=== PATIENT | male | born 1935 | race Caucasian/White ===

== ENCOUNTER 2017-11-04 12:38 | Emergency (ER) | payer MEDICARE, BC ==
[~2017-11-04] VITALS: Ht 174 cm; Wt 97.4 kg
[~2017-11-04 12:38] MED LIST: ASPI81TA82 PO; ATOR40TA PO; BACT2CRE TOP; BUPR-86 PO; CEFU1TAB43 PO; COQ150CA PO; FOLI1TAB PO; METO50TA PO; SYMB160A INH; VITATAB11 PO; ZETI10TA5 PO
[2017-11-04 12:46] VITALS: BP 136/69; PULSE 59; RESP 16; TEMP 97.9; O2SAT 95
[2017-11-04 13:05] VITALS: RESP 24; O2SAT 95
--- NOTE | 2017-11-04 13:18 | PD ---
HPI Chief Complaint: Edema Time Seen by Provider: 13:18 Travel History International Travel<30 days: No Contact w/Intl Traveler<30days: No Traveled to known affect area: No History of Present Illness HPI 81-year-old male came to the emergency room with history of right leg and ankle swelling for past 1 week. His is here was giving some additional history. Patient had gone to see his primary care. Days ago and an x-ray of the ankle was ordered. The x-ray was negative for any injury. But this morning the swelling was worse when the right decided to bring him to the emergency room. Patient has history of COPD and has been short of breath. His vital signs were relatively stable. Patient is denying of any chest pain. No history of vomiting or diarrhea. No history of previous blood clots in the legs or lungs. Patient is on 1 baby aspirin every day. No leg pain or chills. PFSH Past Medical History Narrative Medical List of his past medical, surgical, social and family history is reviewed from the nursing note. Hx Anticoagulant Therapy: Yes Arthritis: No Asthma: No Heart Rhythm Problems: Yes (unsure) Cancer: No Cardiovascular Problems: Yes (HTN ON MEDS) High Cholesterol: Yes Chest Pain: No Congestive Heart Failure: No COPD: Yes Cerebrovascular Accident: Yes Diabetes: No Diminished Hearing: No Endocrine: No Genitourinary: No Hepatitis: No Hiatal Hernia: No Hypertension: Yes Immune Disorder: No Musculoskeletal: No Neurologic: Yes Psychiatric: No Reproductive: No Respiratory: Yes (COPD) Shingles: Yes Thyroid Disease: No Past Surgical History Abdominal Surgery: No AICD: No Cardiac Surgery: No Ear Surgery: No Endocrine Surgery: No Eye Surgery: Yes (BILAT. CATARACTS) Genitourinary Surgery: Yes (PROSTATE ) Joint Replacement: No Oral Surgery: No Thoracic Surgery: No Other Surgery: Yes (CAROTID SX) Social History Alcohol Use: No Tobacco Use: No Substance Use: No Allergies-Medications (Allergen,Severity, Reaction): Coded Allergies: formaldehyde (Unverified Allergy, Mild, RASH, 11/04/17) iodine (Unverified Allergy, Mild, RASH, 11/04/17) penicillin G (Unverified Allergy, Mild, STATES NOT ALLERGIC, 11/04/17) petrolatum,white (Unverified Allergy, Mild, RASH, 11/04/17) potassium iodide (Unverified Allergy, Mild, RASH, 11/04/17) povidone-iodine (Unverified Allergy, Mild, RASH, 11/04/17) sodium iodide (Unverified Allergy, Mild, RASH, 11/04/17) sodium iodide (Unverified Allergy, Mild, RASH, 11/04/17) Uncoded Allergies: PETROLEUM JELLY (Allergy, Intermediate, RASH AND ITCHING , 06/28/13) Comments List of his allergies reviewed from the nursing note. Reported Meds & Prescriptions Reported Meds & Active Scripts Active Clindamycin (Clindamycin HCl) 150 Mg Cap 150 Mg PO Q6H 7 Days Reported Ranitidine (Ranitidine HCl) 150 Mg Tab 150 Mg PO HS Criers Podium (Probiotic Product) 1.5 Billion Cell Cap 1 Cap PO HS Colace (Docusate Sodium) 100 Mg Capsule 100 Mg PO DAILY Proair Hfa 8.5 GM Inh (Albuterol Sulfate) 90 Mcg/Act Aer 2 Puff INH Q4-6H PRN 108 mcg/actuation Symbicort Inh (Budesonide/Formoterol Fumarate) 160-4.5 Mcg/Act Aero 2 Puff INH Q12HR Clobetasol Topical (Clobetasol Propionate) 0.05% Cream 1 Applic TOPICAL BID Vitamin B Complex (B-Complex Vitamins) 1 Tab 1 Tab PO DAILY Vitamin D3 (Cholecalciferol) 2,000 Unit Cap 4,000 Units PO DAILY Coq-10 Tr (Coenzyme Q10 (Ubidecarenone)) 100 Mg Cap 100 Mg PO DAILY Aspirin EC (Aspirin) 81 Mg Tabdr 81 Mg PO DAILY Zetia (Ezetimibe) 10 Mg Tab 10 Mg PO DAILY Folic Acid 0.4 Mg Tab 400 Mcg PO DAILY Atorvastatin (Atorvastatin Calcium) 20 Mg Tab 20 Mg PO DAILY Metoprolol Tartrate 25 Mg Tab 12.5 Mg PO BID Narrative Medication List of his home medications reviewed from the nursing note. Review of Systems Except as stated in HPI: all other systems reviewed are Neg Musculoskeletal: Positive: Edema Physical Exam Narrative GENERAL: Awake, alert, elderly, looks older than his age, moderate distress SKIN: Focused skin assessment warm/dry. Multiple senile ecchymoses HEAD: Atraumatic. Normocephalic. EYES: Pupils equal and round. No scleral icterus. No injection or drainage. ENT: No nasal bleeding or discharge. Mucous membranes pink and moist. NECK: Trachea midline. No JVD. CARDIOVASCULAR: Regular rate and rhythm. No murmur appreciated. RESPIRATORY: Decreased air entry, and expiratory wheeze mostly on the right GASTROINTESTINAL: Abdomen soft, non-tender, nondistended. Hepatic and splenic margins not palpable. MUSCULOSKELETAL: No obvious deformities. No clubbing. No cyanosis. Right leg 2 + edema and left leg 1+ NEUROLOGICAL: Awake and alert. No obvious cranial nerve deficits. Motor grossly within normal limits. Normal speech. PSYCHIATRIC: Appropriate mood and affect; insight and judgment normal. Data Data Last Documented VS Orders Orders Complete Blood Count With Diff (11/04/17 13:27) Basic Metabolic Panel (Bmp) (11/04/17 13:27) B-Type Natriuretic Peptide (11/04/17 13:27) Prothrombin Time / Inr (Pt) (11/04/17 13:27) Troponin I (11/04/17 13:27) Iv Access Insert/Monitor (11/04/17 13:27) Electrocardiogram (11/04/17 13:27) Ecg Monitoring (11/04/17 13:27) Oximetry (11/04/17 13:27) Oxygen Administration (11/04/17 13:27) Chest, Single Ap (11/04/17 13:27) Us Leg Venous Doppler (11/04/17 13:27) Sodium Chloride 0.9% Flush (Ns Flush) (11/04/17 13:30) Albuterol-Ipratropium Neb (Duoneb Neb) (11/04/17 13:30) Cephalexin (Keflex) (11/04/17 15:00) Clindamycin (Cleocin) (11/04/17 15:00) Ed Discharge Order (11/04/17 14:53) Labs Laboratory Tests Test 11/04/17 13:05 White Blood Count 9.2 TH/MM3 Red Blood Count 4.58 MIL/MM3 Hemoglobin 13.6 GM/DL Hematocrit 41.8 % Mean Corpuscular Volume 91.3 FL Mean Corpuscular Hemoglobin 29.8 PG Mean Corpuscular Hemoglobin Concent 32.6 % Red Cell Distribution Width 13.1 % Platelet Count 269 TH/MM3 Mean Platelet Volume 8.1 FL Neutrophils (%) (Auto) 75.4 % Lymphocytes (%) (Auto) 13.7 % Monocytes (%) (Auto) 7.0 % Eosinophils (%) (Auto) 3.6 % Basophils (%) (Auto) 0.3 % Neutrophils # (Auto) 7.0 TH/MM3 Lymphocytes # (Auto) 1.3 TH/MM3 Monocytes # (Auto) 0.6 TH/MM3 Eosinophils # (Auto) 0.3 TH/MM3 Basophils # (Auto) 0.0 TH/MM3 CBC Comment DIFF FINAL Differential Comment Prothrombin Time 10.2 SEC Prothromb Time International Ratio 1.0 RATIO Blood Urea Nitrogen 25 MG/DL Creatinine 1.00 MG/DL Random Glucose 102 MG/DL Calcium Level 8.8 MG/DL Sodium Level 138 MEQ/L Potassium Level 4.6 MEQ/L Chloride Level 104 MEQ/L Carbon Dioxide Level 26.5 MEQ/L Anion Gap 8 MEQ/L Estimat Glomerular Filtration Rate 72 ML/MIN Troponin I LESS THAN 0.02 NG/ML B-Type Natriuretic Peptide 91 PG/ML MDM Medical Decision Making Medical Screen Exam Complete: Yes Emergency Medical Condition: Yes Medical Record Reviewed: Yes Interpretation(s) Twelve-lead EKG was reviewed by me. Normal sinus rhythm, normal axis, right bundle branch block, PVCs. Heart rate of 61 bpm. Differential Diagnosis DVT, congestive heart failure Narrative Course 2:33 PM the test results of back and they're within acceptable limits. Awaiting for the ultrasound of the leg to rule out DVT. Patient was given 2 DuoNeb. 2:50 PM ultrasound is negative for DVT. I'll start him on clindamycin for possible cellulitis and discharge him home. Procedures EKG Prior to Arrival: No Diagnosis Primary Impression: Acute exacerbation of COPD with asthma Additional Impression: Cellulitis Qualified Codes: L03.115 - Cellulitis of right lower limb Referrals: Primary Care Physician 2 days Additional Instructions: Return to the ER if the condition worsens or any other new concerns. Otherwise take the medication as per the prescription direction. Follow-up with your primary care next couple days. Use your inhaler 2 puffs every 8 hours till your breathing symptoms subside. Med/Other Pt SpecificInfo: Prescription(s) given Scripts Clindamycin (Clindamycin) 150 Mg Cap 150 MG PO Q6H for Infection for 7 Days, #28 CAP 0 Refills Prov: Farhad Medina MD 11/04/17 Disposition: 01 DISCHARGE HOME Condition: Stable Farhad Medina MD Nov 04, 2017 13:18
[2017-11-04] MEDS ORDERED: SODIUM CHLORIDE 0.9% FLUSH 10 ML FLUSH IVF PRN (13:30)
[2017-11-04] MEDS ORDERED: VITA2000 PO (13:33)
[2017-11-04] MEDS ORDERED: ASPI81TA23 PO (13:33)
[2017-11-04] MEDS ORDERED: COQ-100C5 PO (13:33)
[2017-11-04] MEDS ORDERED: COLA100C5 PO (13:33)
[2017-11-04] MEDS ORDERED: RANI150T PO (13:33)
[2017-11-04] MEDS ORDERED: CLOB0.055 TOPICAL (13:33)
[2017-11-04] MEDS ORDERED: EZET10 PO (13:33)
[2017-11-04] MEDS ORDERED: VITATAB11 PO (13:33)
[2017-11-04] MEDS ORDERED: ALBUAER3 INH (13:33)
[2017-11-04] MEDS ORDERED: ATOR20TA15 PO (13:33)
[2017-11-04] MEDS ORDERED: METO25TA3 PO (13:33)
[2017-11-04] MEDS ORDERED: PHILCAP2 PO (13:33)
[2017-11-04] MEDS ORDERED: SYMB160A INH (13:33)
[2017-11-04] MEDS ORDERED: FOLI400T PO (13:33)
[2017-11-04 13:39] VITALS: BP 117/80; PULSE 61; RESP 16; O2SAT 95
[2017-11-04] MEDS: RESP: ALBUTEROL 2.5 MG/IPRATROPIUM 0.5 MG NEB (SCH) INH ×2 (13:39→13:40)
[2017-11-04 13:44] LABS: BASOPHIL % 0.3 % (0.0-2.0); EOSINOPHIL # 0.3 TH/MM3 (0-0.4); EOSINOPHIL % 3.6 % (0.0-4.0); HEMATOCRIT 41.8 % (39.0-51.0); HEMOGLOBIN 13.6 GM/DL (13.0-17.0); LYMPH % 13.7 % (9.0-44.0); LYMPHOCYTE # 1.3 TH/MM3 (1.0-4.8); MEAN CELL VOLUME 91.3 FL (80.0-100.0); MEAN CORPUSCULAR HEMOGLOBIN 29.8 PG (27.0-34.0); MEAN CORPUSCULAR HGB CONC 32.6 % (32.0-36.0); MEAN PLATELET VOLUME 8.1 FL (7.0-11.0); MONOCYTE # 0.6 TH/MM3 (0-0.9); NEUT % 75.4 % (16.0-70.0); PLATELET COUNT 269 TH/MM3 (150-450); RED BLOOD COUNT 4.58 MIL/MM3 (4.50-5.90); RED CELL DISTRIBUTION WIDTH 13.1 % (11.6-17.2); WHITE BLOOD COUNT 9.2 TH/MM3 (4.0-11.0)
[2017-11-04 14:09] LABS: CHLORIDE 104 MEQ/L (98-107); SODIUM (NA) 138 MEQ/L (136-145)
[2017-11-04 14:11] LABS: BICARBONATE 26.5 MEQ/L (21.0-32.0); CALCIUM 8.8 MG/DL (8.5-10.1); GLUCOSE,RANDOM 102 MG/DL (74-106)
[2017-11-04 14:12] LABS: BLOOD UREA NITROGEN 25 MG/DL (7-18); PROTHROMBIN TIME - PATIENT 10.2 SEC (9.8-11.6)
[2017-11-04 14:15] LABS: GLOMERULAR FILTRATION RATE 72 ML/MIN (>89)
[2017-11-04 14:19] LABS: TROPONIN I LESS THAN 0.02 NG/ML (0.02-0.05)
--- NOTE | 2017-11-04 14:37 | RADRPT ---
EXAM DATE/TIME: 11/04/2017 14:16 [facility] COMPARISON: No previous studies available for comparison. INDICATIONS : Right leg swelling. MEDICAL HISTORY : Hypercholesterolemia. Hypertension. Chronic obstructive pulmonary disease. CVA. Anticoagulant ther apy. SURGICAL HISTORY : Carotid surgery. Skin cancer removal. ENCOUNTER: Initial ACUITY: 1 week PAIN SCORE: 0/10 LOCATION: Right leg. TECHNIQUE: Venous ultrasound of the leg was performed from the inguinal ligament to the proximal calf. Real-keri e, color Doppler and spectral tracing, compression and augmentation techniques were used. FINDINGS: There is normal compressibility of the deep venous system from the inguinal region to the proximal ca lf. No echogenic clot is seen in the lumen of the common femoral, femoral, popliteal, and posterior tibial veins. There is a normal response of the venous system to proximal and distal augmentation an d respiration. CONCLUSION: Normal examination. Francisco Au MD on November 04, 2017 at 14:34 Board Certified Radiologist. This report was verified electronically.
--- NOTE | 2017-11-04 14:47 | RADRPT ---
EXAM DATE/TIME: 11/04/2017 14:34 [facility] COMPARISON: CHEST SINGLE AP, July 03, 2016, 12:42. INDICATIONS : Lower extremity swelling for one week. MEDICAL HISTORY : Hypercholesterolemia. Hypertension. Chronic obstructive pulmonary disease. CVA. Anticoagulant therapy . SURGICAL HISTORY : Carotid surgery. Skin cancer removal. ENCOUNTER: Initial ACUITY: 1 week PAIN SCORE: 0/10 LOCATION: Bilateral chest FINDINGS: A single view of the chest demonstrates the lungs to be symmetrically aerated without evidence of mas s, infiltrate or effusion. The cardiomediastinal contours are unremarkable. Osseous structures are intact. CONCLUSION: Normal examination. The aorta is quite tortuous. Francisco Au MD on November 04, 2017 at 14:45 Board Certified Radiologist. This report was verified electronically.
[2017-11-04] MEDS ORDERED: CLIN150C14 PO (14:52)
[2017-11-04] MEDS ORDERED: CLINDAMYCIN 150 MG CAP PO ONE (15:00)
[2017-11-04] MEDS ORDERED: CEPHALEXIN MONOHYDRATE 500 MG CAP PO ONE (15:00)
[2017-11-04 15:05] VITALS: BP 103/63; PULSE 74; RESP 16; O2SAT 94
--- NOTE | 2017-11-04 16:21 | EKG ---
Date Performed: 11/04/2017 Time Performed: 13:57:58 PTAGE: 81 years EKG: Sinus rhythm WITH OCCASIONAL VENTRICULAR PREMATURE COMPLEXES WITH OCCASIONAL SUPRAVENTRICULAR PREMATURE COMPLEXES RIGHT BUNDLE BRANCH BLOCK ABNORMAL ECG Compared to prior electrocardiogram, rate has decreased PREVIOUS TRACING : 07/03/2016 12.12 DOCTOR: Kaushal Aleman Interpretating Date/Time 11/04/2017 16:20:37
== END 2017-11-04 15:55 | disposition home or self-care (01) ==
LOC: PHED 12:38
DX: J44.1 Chronic obstructive pulmonary disease with (acute) exacerbation (principal); L03.115 Cellulitis of right lower limb; R94.31 Abnormal electrocardiogram [ECG] [EKG]; I10 Essential (primary) hypertension; E78.00 Pure hypercholesterolemia, unspecified; Z86.73 Personal history of transient ischemic attack (TIA), and cerebral infarction without residual deficits; Z79.82 Long term (current) use of aspirin
CPT/HCPCS: 71010; 80048; 83880; 84484; 85025; 85610; 93005; 93971; 94640; 94664

== ENCOUNTER 2017-12-15 17:40 | Emergency (ER) | payer MEDICARE, BC ==
[~2017-12-15] VITALS: Ht 172.7 cm; Wt 98.0 kg
[~2017-12-15 17:40] MED LIST changes: +ALBUAER3 INH; +ASPI81TA23 PO; -ASPI81TA82 PO; +ATOR20TA15 PO; -ATOR40TA PO; -BACT2CRE TOP; -BUPR-86 PO; -CEFU1TAB43 PO; +CLIN150C14 PO; +CLOB0.055 TOPICAL; +COLA100C5 PO; +COQ-100C5 PO; -COQ150CA PO; +EZET10 PO; -FOLI1TAB PO; +FOLI400T PO; +METO25TA3 PO; -METO50TA PO; +PHILCAP2 PO; +RANI150T PO; +VITA2000 PO; -ZETI10TA5 PO
[2017-12-15 18:06] VITALS: BP 124/61; PULSE 88; RESP 16; TEMP 98.4; O2SAT 95
[2017-12-15] MEDS ORDERED: CIPR-9 PO (19:18)
--- NOTE | 2017-12-15 19:25 | PD ---
HPI Chief Complaint: Edema Time Seen by Provider: 19:10 Travel History International Travel<30 days: No Contact w/Intl Traveler<30days: No Traveled to known affect area: No History of Present Illness HPI 82yo M with PMH of CVA, COPD here with c/o bilateral lower extremity edema. Said it is more ankle and up to half of the calf and more edema on right side than left. Had some calf pain that had resolved on its own. Pt is being treated for a fungal infection on bilateral feet and said the medication helps with the itching. 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 He said that his legs started swelling after that but unsure if it is related. Denies any fever, chest pain, sob, n/v, abdominal pain, focal weakness or numbness or trauma. Denies any PE/DVT. PFSH Past Medical History Hx Anticoagulant Therapy: Yes Arthritis: No Asthma: No Heart Rhythm Problems: Yes (unsure) Cancer: No Cardiovascular Problems: Yes (HTN ON MEDS) High Cholesterol: Yes Chest Pain: No Congestive Heart Failure: No COPD: Yes Cerebrovascular Accident: Yes Diabetes: No Diminished Hearing: No Endocrine: No Genitourinary: No Hepatitis: No Hiatal Hernia: No Hypertension: Yes Immune Disorder: No Musculoskeletal: No Neurologic: Yes Psychiatric: No Reproductive: No Respiratory: Yes (COPD) Shingles: Yes Sleep Apnea: No Thyroid Disease: No Influenza Vaccination: No Past Surgical History Abdominal Surgery: No AICD: No Cardiac Surgery: No Ear Surgery: No Endocrine Surgery: No Eye Surgery: Yes (BILAT. CATARACTS) Genitourinary Surgery: Yes (PROSTATE ) Joint Replacement: No Oral Surgery: No Thoracic Surgery: No Other Surgery: Yes (CAROTID SX, skin cancer removal) Social History Alcohol Use: No Tobacco Use: No Substance Use: No Allergies-Medications (Allergen,Severity, Reaction): Coded Allergies: formaldehyde (Unverified Allergy, Mild, RASH, 12/15/17) iodine (Unverified Allergy, Mild, RASH, 12/15/17) penicillin G (Unverified Allergy, Mild, STATES NOT ALLERGIC, 12/15/17) petrolatum,white (Unverified Allergy, Mild, RASH, 12/15/17) potassium iodide (Unverified Allergy, Mild, RASH, 12/15/17) povidone-iodine (Unverified Allergy, Mild, RASH, 12/15/17) sodium iodide (Unverified Allergy, Mild, RASH, 12/15/17) sodium iodide (Unverified Allergy, Mild, RASH, 12/15/17) Uncoded Allergies: PETROLEUM JELLY (Allergy, Intermediate, RASH AND ITCHING , 06/28/13) Reported Meds & Prescriptions Reported Meds & Active Scripts Active Reported Cipro (Ciprofloxacin HCl) 500 Mg Tab 500 Mg PO BID Ranitidine (Ranitidine HCl) 150 Mg Tab 150 Mg PO HS [place]ursway (Probiotic Product) 1.5 Billion Cell Cap 1 Cap PO HS Colace (Docusate Sodium) 100 Mg Capsule 100 Mg PO DAILY Proair Hfa 8.5 GM Inh (Albuterol Sulfate) 90 Mcg/Act Aer 2 Puff INH Q4-6H PRN 108 mcg/actuation Symbicort Inh (Budesonide/Formoterol Fumarate) 160-4.5 Mcg/Act Aero 2 Puff INH Q12HR Clobetasol Topical (Clobetasol Propionate) 0.05% Cream 1 Applic TOPICAL BID Vitamin B Complex (B-Complex Vitamins) 1 Tab 1 Tab PO DAILY Vitamin D3 (Cholecalciferol) 2,000 Unit Cap 4,000 Units PO DAILY Coq-10 Tr (Coenzyme Q10 (Ubidecarenone)) 100 Mg Cap 100 Mg PO DAILY Aspirin EC (Aspirin) 81 Mg Tabdr 81 Mg PO DAILY Zetia (Ezetimibe) 10 Mg Tab 10 Mg PO DAILY Folic Acid 0.4 Mg Tab 400 Mcg PO DAILY Atorvastatin (Atorvastatin Calcium) 20 Mg Tab 20 Mg PO DAILY Metoprolol Tartrate 25 Mg Tab 12.5 Mg PO BID Review of Systems Except as stated in HPI: all other systems reviewed are Neg Physical Exam Narrative GENERAL: 82yo M not in distress. SKIN: Focused skin assessment warm/dry. HEAD: Atraumatic. Normocephalic. EYES: Pupils equal and round. No scleral icterus. No injection or drainage. ENT: No nasal bleeding or discharge. Mucous membranes pink and moist. NECK: Trachea midline. No JVD. CARDIOVASCULAR: Regular rate and rhythm. No murmur appreciated. RESPIRATORY: No accessory muscle use. Mild end expiratory wheezing. GASTROINTESTINAL: Abdomen soft, non-tender, nondistended. MUSCULOSKELETAL: Bilateral lower extremity pitting edema, right is more edematous than left. No calf tenderness on exam. DP 2+. +Irregular erythematous rash with central clearing in bilateral feet that does appear fungal. Sensation intact bilaterally. NEUROLOGICAL: Awake and alert. No obvious cranial nerve deficits. Motor grossly within normal limits. Normal speech. PSYCHIATRIC: Appropriate mood and affect; insight and judgment normal. Data Data Last Documented VS Vital Signs Date Time Temp Pulse Resp B/P (MAP) Pulse Ox O2 Delivery O2 Flow Rate FiO2 12/15/17 20:41 82 18 116/64 (81) 97 Room Air 12/15/17 18:06 98.4 Orders Orders Us Leg Venous Doppler Bilat (12/15/17 ) Complete Blood Count With Diff (12/15/17 19:19) Comprehensive Metabolic Panel (12/15/17 19:19) Prothrombin Time / Inr (Pt) (12/15/17 19:19) Act Partial Throm Time (Ptt) (12/15/17 19:19) B-Type Natriuretic Peptide (12/15/17 19:21) Labs Laboratory Tests Test 12/15/17 20:00 White Blood Count 9.3 TH/MM3 Red Blood Count 5.09 MIL/MM3 Hemoglobin 15.3 GM/DL Hematocrit 46.4 % Mean Corpuscular Volume 91.1 FL Mean Corpuscular Hemoglobin 30.0 PG Mean Corpuscular Hemoglobin Concent 32.9 % Red Cell Distribution Width 13.3 % Platelet Count 239 TH/MM3 Mean Platelet Volume 8.4 FL Neutrophils (%) (Auto) 72.5 % Lymphocytes (%) (Auto) 14.7 % Monocytes (%) (Auto) 8.8 % Eosinophils (%) (Auto) 3.7 % Basophils (%) (Auto) 0.3 % Neutrophils # (Auto) 6.8 TH/MM3 Lymphocytes # (Auto) 1.4 TH/MM3 Monocytes # (Auto) 0.8 TH/MM3 Eosinophils # (Auto) 0.3 TH/MM3 Basophils # (Auto) 0.0 TH/MM3 CBC Comment DIFF FINAL Differential Comment Prothrombin Time 10.3 SEC Prothromb Time International Ratio 1.0 RATIO Activated Partial Thromboplast Time 26.9 SEC Blood Urea Nitrogen 28 MG/DL Creatinine 1.10 MG/DL Random Glucose 86 MG/DL Total Protein 7.7 GM/DL Albumin 3.5 GM/DL Calcium Level 9.0 MG/DL Alkaline Phosphatase 118 U/L Aspartate Amino Transf (AST/SGOT) 22 U/L Alanine Aminotransferase (ALT/SGPT) 27 U/L Total Bilirubin 0.3 MG/DL Sodium Level 141 MEQ/L Potassium Level 4.2 MEQ/L Chloride Level 108 MEQ/L Carbon Dioxide Level 29.2 MEQ/L Anion Gap 4 MEQ/L Estimat Glomerular Filtration Rate 64 ML/MIN B-Type Natriuretic Peptide 79 PG/ML MDM Medical Decision Making Medical Screen Exam Complete: Yes Emergency Medical Condition: Yes Differential Diagnosis Dependent edema vs. DVT vs. CHF vs. kidney failure vs. liver failure Narrative Course 82yo M with bilateral lower extremity edema, right more than left. Denies any chest pain or sob. Labs reviewed, no leukocytosis. H/H normal. BNP 79. BUN mildly elevated at 28. Pt tolerating PO and can orally hydrate. LFTs wnl. US bilateral lower extremity showed no DVT. Pt said he feels better and wants to go home. Return precautions given. Diagnosis Primary Impression: Edema Qualified Codes: R60.9 - Edema, unspecified Patient Instructions: General Instructions Departure Forms: Tests/Procedures Additional Instructions: Please follow up with your primary care physician in 2-3 days. Return to the ED if symptoms worsen. Med/Other Pt SpecificInfo: No Change to Meds Disposition: 01 DISCHARGE HOME Condition: Stable MoeRenetta DO Dec 15, 2017 19:25
[2017-12-15 20:23] LABS: AUTOMATED NEUTROPHIL # 6.8 TH/MM3 (1.8-7.7); BASOPHIL % 0.3 % (0.0-2.0); EOSINOPHIL # 0.3 TH/MM3 (0-0.4); EOSINOPHIL % 3.7 % (0.0-4.0); HEMATOCRIT 46.4 % (39.0-51.0); HEMOGLOBIN 15.3 GM/DL (13.0-17.0); LYMPH % 14.7 % (9.0-44.0); LYMPHOCYTE # 1.4 TH/MM3 (1.0-4.8); MEAN CELL VOLUME 91.1 FL (80.0-100.0); MEAN CORPUSCULAR HGB CONC 32.9 % (32.0-36.0); MEAN PLATELET VOLUME 8.4 FL (7.0-11.0); MONO % 8.8 % (0.0-8.0); MONOCYTE # 0.8 TH/MM3 (0-0.9); NEUT % 72.5 % (16.0-70.0); PLATELET COUNT 239 TH/MM3 (150-450); RED BLOOD COUNT 5.09 MIL/MM3 (4.50-5.90); RED CELL DISTRIBUTION WIDTH 13.3 % (11.6-17.2); WHITE BLOOD COUNT 9.3 TH/MM3 (4.0-11.0)
[2017-12-15 20:30] LABS: CHLORIDE 108 MEQ/L (98-107); SODIUM (NA) 141 MEQ/L (136-145)
[2017-12-15 20:34] LABS: ALBUMIN 3.5 GM/DL (3.4-5.0); BICARBONATE 29.2 MEQ/L (21.0-32.0); BLOOD UREA NITROGEN 28 MG/DL (7-18); GLUCOSE,RANDOM 86 MG/DL (74-106)
[2017-12-15 20:37] LABS: ALT (GPT) 27 U/L (12-78); AST (GOT) 22 U/L (15-37); GLOMERULAR FILTRATION RATE 64 ML/MIN (>89)
[2017-12-15 20:38] LABS: TOTAL BILIRUBIN ADULT 0.3 MG/DL (0.2-1.0); TOTAL PROTEIN 7.7 GM/DL (6.4-8.2)
[2017-12-15 20:39] LABS: ALKALINE PHOSPHATASE 118 U/L (45-117)
[2017-12-15 20:41] VITALS: BP 116/64; PULSE 82; RESP 18; O2SAT 97
[2017-12-15 20:41] LABS: PROTHROMBIN TIME - PATIENT 10.3 SEC (9.8-11.6)
--- NOTE | 2017-12-15 21:36 | RADRPT ---
EXAM DATE/TIME: 12/15/2017 21:10 [facility] COMPARISON: No previous studies available for comparison. INDICATIONS : Bilateral leg swelling. MEDICAL HISTORY : Hypercholesterolemia. Hypertension. Chronic obstructivepulmonary disease. CVA. Anticoagulant therapy. SURGICAL HISTORY : None. Carotid surgery. Skin cancer removal. ENCOUNTER: Subsequent ACUITY: 2 weeks PAIN SCORE: 0/10 LOCATION: Bilateral legs. TECHNIQUE: Venous ultrasound of the left and right leg was performed from the inguinal ligament to the proximal calf. Real-time, color Doppler and spectral tracing, compression and augmentation techniques were us ed. FINDINGS: RIGHT LEG: There is normal compressibility of the deep venous system from the inguinal region to the proximal ca lf. No echogenic clot is seen in the lumen of the common femoral, femoral, popliteal, and posterior tibial veins. There is a normal response of the venous system to proximal and distal augmentation an d respiration. LEFT LEG: There is normal compressibility of the deep venous system from the inguinal region to the proximal ca lf. No echogenic clot is seen in the lumen of the common femoral, femoral, popliteal, and posterior tibial veins. There is a normal response of the venous system to proximal and distal augmentation an d respiration. CONCLUSION: No evidence of deep venous thrombosis. Noel Levin MD on December 15, 2017 at 21:33 Board Certified Radiologist. This report was verified electronically.
[2017-12-15 22:25] VITALS: BP 145/65; PULSE 84; RESP 18; O2SAT 97
== END 2017-12-15 22:30 | disposition home or self-care (01) ==
LOC: PHED 17:40
DX: R60.9 Edema, unspecified (principal); I10 Essential (primary) hypertension; E78.00 Pure hypercholesterolemia, unspecified; J44.9 Chronic obstructive pulmonary disease, unspecified; Z86.73 Personal history of transient ischemic attack (TIA), and cerebral infarction without residual deficits; Z79.82 Long term (current) use of aspirin; Z79.899 Other long term (current) drug therapy
CPT/HCPCS: 80053; 83880; 85025; 85610; 85730; 93970

== ENCOUNTER → 2018-02-05 | Outpatient (CLI) | payer MEDICARE, BC ==
[~2018-02-05] MED LIST changes: +CIPR-9 PO; -CLIN150C14 PO
--- NOTE | 2018-02-05 10:43 | RADRPT ---
EXAM DATE/TIME: 02/05/2018 00:00 [facility] COMPARISON: No previous studies available for comparison. INDICATIONS : Dysphagia FLUORO TIME: 1.6 minutes IMAGE COUNT: 0 CONTRAST: Dose as prescribed by speech pathologist. MEDICAL HISTORY : Stroke. SURGICAL HISTORY : None. ENCOUNTER: Initial ACUITY: 1 month PAIN SCORE: Non-responsive. LOCATION: Bilateral esophagus FINDINGS: A modified barium swallow was performed with speech pathology. Patient was given a variety of liquids to swallow. The patient demonstrates penetration of the supraglottic larynx with thin barium and one episode of penetration with barium-coated cookie. [place]-thick and applesauce-thick barium demonstra esperanza no penetration or aspiration. The oral phase is normal without delay in posterior propulsion. For a full detailed report, see report by the speech pathologist. CONCLUSION: Penetration of the supraglottic larynx with thin barium and one episode of penetration with barium-co ated cookie. Noel Levin MD on February 05, 2018 at 10:36 Board Certified Radiologist. This report was verified electronically.
== END ==
LOC: HRAD 09:41
PROVIDERS: ATTEND Specialist
DX: R13.10 Dysphagia, unspecified (principal)
CPT/HCPCS: 74230; 92611; G8996; G8997; G8998

== ENCOUNTER 2018-03-17 13:15 | Emergency (ER) | payer MEDICARE, BC ==
[~2018-03-17] VITALS: Ht 175.3 cm; Wt 96.7 kg
[2018-03-17 13:18] VITALS: BP 102/56; PULSE 64; RESP 16; TEMP 98.9; O2SAT 94
--- NOTE | 2018-03-17 13:50 | PD ---
HPI Chief Complaint: Chest Pain Time Seen by Provider: 13:28 Travel History International Travel<30 days: No Contact w/Intl Traveler<30days: No Traveled to known affect area: No History of Present Illness HPI This is an 82-year-old male who presents to the emergency department with 1 day of increasing shortness of breath associated with a productive cough, constant, moderate severity associated with some chest tightness in the center of his chest. His recently traveled and had an upper respiratory infection is concerned she may have given it to him. He has not had any fevers or chills. He does have a history of COPD. He tried his inhalers but that did not work. PFSH Past Medical History Hx Anticoagulant Therapy: Yes Arthritis: No Asthma: No Heart Rhythm Problems: Yes (unsure) Cancer: No Cardiovascular Problems: Yes (HTN) High Cholesterol: Yes Chest Pain: No Congestive Heart Failure: No COPD: Yes Cerebrovascular Accident: Yes (CVA) Diabetes: No Diminished Hearing: No Endocrine: No Genitourinary: No Hepatitis: No Hiatal Hernia: No Hypertension: Yes Immune Disorder: No Musculoskeletal: No Neurologic: Yes Psychiatric: No Reproductive: No Respiratory: Yes (COPD) Shingles: Yes Sleep Apnea: No Thyroid Disease: No Tetanus Vaccination: < 5 Years Influenza Vaccination: No Past Surgical History Abdominal Surgery: No AICD: No Cardiac Surgery: No Ear Surgery: No Endocrine Surgery: No Eye Surgery: Yes (BILAT. CATARACTS) Genitourinary Surgery: Yes (PROSTATE ) Joint Replacement: No Oral Surgery: No Thoracic Surgery: No Other Surgery: Yes (CAROTID SX, skin cancer removal) Social History Alcohol Use: No Tobacco Use: No Substance Use: No Allergies-Medications (Allergen,Severity, Reaction): Coded Allergies: formaldehyde (Unverified Allergy, Mild, RASH, 12/15/17) iodine (Unverified Allergy, Mild, RASH, 12/15/17) penicillin G (Unverified Allergy, Mild, STATES NOT ALLERGIC, 12/15/17) petrolatum,white (Unverified Allergy, Mild, RASH, 12/15/17) potassium iodide (Unverified Allergy, Mild, RASH, 12/15/17) povidone-iodine (Unverified Allergy, Mild, RASH, 12/15/17) sodium iodide (Unverified Allergy, Mild, RASH, 12/15/17) sodium iodide (Unverified Allergy, Mild, RASH, 12/15/17) Uncoded Allergies: PETROLEUM JELLY (Allergy, Intermediate, RASH AND ITCHING , 06/28/13) Reported Meds & Prescriptions Reported Meds & Active Scripts Active Reported Ranitidine (Ranitidine HCl) 150 Mg Tab 150 Mg PO HS Everplaces (Probiotic Product) 1.5 Billion Cell Cap 1 Cap PO HS Colace (Docusate Sodium) 100 Mg Capsule 100 Mg PO DAILY Proair Hfa 8.5 GM Inh (Albuterol Sulfate) 90 Mcg/Act Aer 2 Puff INH Q4-6H PRN 108 mcg/actuation Symbicort Inh (Budesonide/Formoterol Fumarate) 160-4.5 Mcg/Act Aero 2 Puff INH Q12HR Clobetasol Topical (Clobetasol Propionate) 0.05% Cream 1 Applic TOPICAL BID Vitamin B Complex (B-Complex Vitamins) 1 Tab 1 Tab PO DAILY Vitamin D3 (Cholecalciferol) 2,000 Unit Cap 4,000 Units PO DAILY Coq-10 Tr (Coenzyme Q10 (Ubidecarenone)) 100 Mg Cap 100 Mg PO DAILY Aspirin EC (Aspirin) 81 Mg Tabdr 81 Mg PO DAILY Zetia (Ezetimibe) 10 Mg Tab 10 Mg PO DAILY Folic Acid 0.4 Mg Tab 400 Mcg PO DAILY Atorvastatin (Atorvastatin Calcium) 20 Mg Tab 20 Mg PO DAILY Metoprolol Tartrate 25 Mg Tab 12.5 Mg PO BID Review of Systems Except as stated in HPI: all other systems reviewed are Neg Physical Exam Narrative GENERAL: Frail elderly male in no acute distress. SKIN: Ecchymoses on the bilateral lower extremities. Psoriatic plaques present. HEAD: Atraumatic. Normocephalic. EYES: Pupils equal and round. No injection or drainage. ENT: Moist mucous membranes NECK: Trachea midline. CARDIOVASCULAR: Regular rate and rhythm. No murmur appreciated. No edema. RESPIRATORY: Tachypnea, diffuse wheezing in the bilateral upper extremities. GASTROINTESTINAL: Abdomen soft, non-tender, nondistended. MUSCULOSKELETAL: No obvious deformities. NEUROLOGICAL: Awake and alert. No obvious cranial nerve deficits. Moving all extremities. PSYCHIATRIC: Appropriate mood and affect; insight and judgment normal. Data Data Last Documented VS Vital Signs Date Time Temp Pulse Resp B/P (MAP) Pulse Ox O2 Delivery O2 Flow Rate FiO2 03/17/18 13:57 95 Room Air 03/17/18 13:36 20 03/17/18 13:18 98.9 64 102/56 (71) Orders Orders Complete Blood Count With Diff (03/17/18 13:46) Comprehensive Metabolic Panel (03/17/18 13:46) Troponin I (03/17/18 13:46) Iv Access Insert/Monitor (03/17/18 13:46) Ecg Monitoring (03/17/18 13:46) Oximetry (03/17/18 13:46) Oxygen Administration (03/17/18 13:46) Chest, Pa & Lat (03/17/18 13:46) Sodium Chloride 0.9% Flush (Ns Flush) (03/17/18 14:00) Methylprednisolone So Succ Inj (Solumedr (03/17/18 14:00) Albuterol-Ipratropium Neb (Duoneb Neb) (03/17/18 14:00) B-Type Natriuretic Peptide (03/17/18 13:46) Electrocardiogram (03/17/18 ) Labs Laboratory Tests Test 03/17/18 13:55 White Blood Count 11.2 TH/MM3 Red Blood Count 4.85 MIL/MM3 Hemoglobin 14.4 GM/DL Hematocrit 42.6 % Mean Corpuscular Volume 87.8 FL Mean Corpuscular Hemoglobin 29.7 PG Mean Corpuscular Hemoglobin Concent 33.9 % Red Cell Distribution Width 14.1 % Platelet Count 207 TH/MM3 Mean Platelet Volume 9.6 FL Neutrophils (%) (Auto) 81.0 % Lymphocytes (%) (Auto) 6.7 % Monocytes (%) (Auto) 7.0 % Eosinophils (%) (Auto) 1.8 % Basophils (%) (Auto) 3.5 % Neutrophils # (Auto) 9.1 TH/MM3 Lymphocytes # (Auto) 0.7 TH/MM3 Monocytes # (Auto) 0.8 TH/MM3 Eosinophils # (Auto) 0.2 TH/MM3 Basophils # (Auto) 0.4 TH/MM3 CBC Comment DIFF FINAL Differential Comment Blood Urea Nitrogen 21 MG/DL Creatinine 0.97 MG/DL Random Glucose 86 MG/DL Total Protein 7.6 GM/DL Albumin 3.3 GM/DL Calcium Level 8.9 MG/DL Alkaline Phosphatase 112 U/L Aspartate Amino Transf (AST/SGOT) 27 U/L Alanine Aminotransferase (ALT/SGPT) 44 U/L Total Bilirubin 0.8 MG/DL Sodium Level 140 MEQ/L Potassium Level 4.2 MEQ/L Chloride Level 108 MEQ/L Carbon Dioxide Level 26.5 MEQ/L Anion Gap 6 MEQ/L Estimat Glomerular Filtration Rate 74 ML/MIN Troponin I LESS THAN 0.02 NG/ML B-Type Natriuretic Peptide 63 PG/ML MDM Medical Decision Making Medical Screen Exam Complete: Yes Emergency Medical Condition: Yes Interpretation(s) Mild leukocytosis Electrolytes are reassuring Troponin is normal BMP is normal Chest x-ray: No acute process EKG: nsr, pacs, right bundle branch block, no st changes Differential Diagnosis COPD exacerbation, pneumonia, aspiration, congestive heart failure, myocardial infarction Narrative Course This is an 82-year-old male who presents to the emergency department with shortness of breath. He is dyspneic on exam initially with wheezing. He was placed on a monitor and an IV was established. Labs were obtained which were reassuring following a normal BNP. EKG is nonischemic. Chest x-ray demonstrates no obvious pneumonia. Patient was given bronchodilator treatments , steroids and on reassessment with significantly improved. I suspect this reflects COPD exacerbation. Patient will be treated with bronchodilators, steroids and antibiotics. At this time I think is appropriate for outpatient therapy but he is high risk and family was told to return if his symptoms worsen. Diagnosis Primary Impression: COPD exacerbation Patient Instructions: General Instructions Additional Instructions: If you develop severe shortness of breath, chest pain, or difficulty breathing return to the emergency department. Use albuterol every 4 hours for the next 2 days. Then use as needed for wheezing. Complete your course of steroids. Complete your course of antibiotics. Follow up with your primary care physician in 2-3 days if your symptoms have not improved. Med/Other Pt SpecificInfo: Prescription(s) given Scripts Albuterol 8.5 GM Inh (Proair Hfa 8.5 GM Inh) 90 Mcg/Act Aer 2 PUFF INH Q4-6H Y for SHORTNESS OF BREATH, #1 INHALER 0 Refills 108 mcg/actuation Prov: Courtney Van MD 03/17/18 Prednisone (Prednisone) 20 Mg Tab 40 MG PO DAILY, #10 TAB 0 Refills Take 40 mg (2 tablets) daily for 5 days Prov: Courtney Van MD 03/17/18 Levofloxacin (Levaquin) 750 Mg Tablet 750 MG PO DAILY for Infection for 5 Days, #5 TAB 0 Refills Prov: Courtney Van MD 03/17/18 Disposition: 01 DISCHARGE HOME Condition: Stable Courtney Van MD March 17, 2018 13:50
[2018-03-17 13:57] VITALS: O2SAT 95
[2018-03-17] MEDS ORDERED: methylPREDNISolone SOD SUCC 125 MG/2 ML VIAL IV PUSH ONE (14:00)
[2018-03-17] MEDS ORDERED: SODIUM CHLORIDE 0.9% FLUSH 10 ML FLUSH IVF PRN (14:00)
[2018-03-17] MEDS: RESP: ALBUTEROL 2.5 MG/IPRATROPIUM 0.5 MG NEB (SCH) INH ×2 (14:01→14:04)
[2018-03-17 14:24] LABS: AUTOMATED NEUTROPHIL # 9.1 TH/MM3 (1.8-7.7); BASOPHIL # 0.4 TH/MM3 (0-0.2); BASOPHIL % 3.5 % (0.0-2.0); EOSINOPHIL # 0.2 TH/MM3 (0-0.4); EOSINOPHIL % 1.8 % (0.0-4.0); HEMATOCRIT 42.6 % (39.0-51.0); HEMOGLOBIN 14.4 GM/DL (13.0-17.0); LYMPH % 6.7 % (9.0-44.0); LYMPHOCYTE # 0.7 TH/MM3 (1.0-4.8); MEAN CELL VOLUME 87.8 FL (80.0-100.0); MEAN CORPUSCULAR HEMOGLOBIN 29.7 PG (27.0-34.0); MEAN CORPUSCULAR HGB CONC 33.9 % (32.0-36.0); MEAN PLATELET VOLUME 9.6 FL (7.0-11.0); MONOCYTE # 0.8 TH/MM3 (0-0.9); PLATELET COUNT 207 TH/MM3 (150-450); RED BLOOD COUNT 4.85 MIL/MM3 (4.50-5.90); RED CELL DISTRIBUTION WIDTH 14.1 % (11.6-17.2); WHITE BLOOD COUNT 11.2 TH/MM3 (4.0-11.0)
[2018-03-17 14:27] LABS: CHLORIDE 108 MEQ/L (98-107); SODIUM (NA) 140 MEQ/L (136-145)
[2018-03-17 14:30] LABS: CALCIUM 8.9 MG/DL (8.5-10.1)
[2018-03-17 14:31] LABS: ALBUMIN 3.3 GM/DL (3.4-5.0); BICARBONATE 26.5 MEQ/L (21.0-32.0); BLOOD UREA NITROGEN 21 MG/DL (7-18); GLUCOSE,RANDOM 86 MG/DL (74-106)
[2018-03-17 14:34] LABS: ALT (GPT) 44 U/L (12-78); AST (GOT) 27 U/L (15-37); CREATININE 0.97 MG/DL (0.60-1.30); GLOMERULAR FILTRATION RATE 74 ML/MIN (>89)
[2018-03-17 14:35] LABS: TOTAL BILIRUBIN ADULT 0.8 MG/DL (0.2-1.0)
[2018-03-17 14:36] LABS: TOTAL PROTEIN 7.6 GM/DL (6.4-8.2)
[2018-03-17 14:37] LABS: ALKALINE PHOSPHATASE 112 U/L (45-117)
[2018-03-17 14:39] LABS: TROPONIN I LESS THAN 0.02 NG/ML (0.02-0.05)
--- NOTE | 2018-03-17 15:27 | RADRPT ---
EXAM DATE/TIME: 03/17/2018 13:57 [facility] COMPARISON: CHEST SINGLE AP, November 04, 2017, 14:34. No previous studies available for comparison. INDICATIONS : Cough and short of breath since last night. MEDICAL HISTORY : Hypercholesterolemia. Hypertension. Chronic obstructivepulmonary disease. CVA. Anticoagulant therapy. SURGICAL HISTORY : Carotid surgery. Skin cancer removal. ENCOUNTER: Initial ACUITY: 2 days PAIN SCORE: 2/10 LOCATION: Bilateral chest FINDINGS: PA and lateral views of the chest demonstrate the lungs to be symmetrically aerated without evidence of mass, infiltrate or effusion. The heart is moderately enlarged with panchamber configuration. ma rkable. Osseous structures are intact. CONCLUSION: 1. No infiltrates seen. 2. Panchamber cardiomegaly, stable from prior. Gilbert Munoz MD on March 17, 2018 at 15:24 Board Certified Radiologist. This report was verified electronically.
[2018-03-17] MEDS ORDERED: ALBUAER3 INH (15:36)
[2018-03-17] MEDS ORDERED: PRED20 PO (15:36)
[2018-03-17] MEDS ORDERED: LEVA750T9 PO (15:36)
[2018-03-17 15:49] VITALS: BP 99/68
--- NOTE | 2018-03-18 09:55 | EKG ---
Date Performed: 03/17/2018 Time Performed: 13:55:29 PTAGE: 82 years EKG: Sinus rhythm Atrial premature complex Right bundle branch block PREVIOUS TRACING : 11/04/2017 13.57 Since the previous tracing, no significant change not ed DOCTOR: Klaus Paredes Interpretating Date/Time 03/18/2018 09:54:04
== END 2018-03-17 15:51 | disposition home or self-care (01) ==
LOC: PHED 13:15
DX: J44.1 Chronic obstructive pulmonary disease with (acute) exacerbation (principal); I45.10 Unspecified right bundle-branch block; I51.7 Cardiomegaly; I10 Essential (primary) hypertension; E78.00 Pure hypercholesterolemia, unspecified; Z86.73 Personal history of transient ischemic attack (TIA), and cerebral infarction without residual deficits; Z79.82 Long term (current) use of aspirin; Z79.899 Other long term (current) drug therapy; Z88.0 Allergy status to penicillin
CPT/HCPCS: 71046; 80053; 83880; 84484; 85025; 93005; 94640; 94664; 96374; 99285; J2930